=== PATIENT | male | born 1975 | race American Indian/Alaskan Native ===

== ENCOUNTER 2018-09-22 11:33 | Emergency (ER) | payer SELFPAY ==
[2018-09-22 11:44] VITALS: BP 167/105
--- NOTE | 2018-09-22 11:53 | Emergency Department Report ---
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 Pt states he wants a refill on his metformin and lisinopril which he takes daily. Pt states he has no other complaints, he denies f/c/n/v/abd pain,chest pain, headache, or blurry vision - ROS Review of Systems: As noted in HPI - Exam Physical Exam: GEN:AAO x3 , speaking in clear sentences SKiN: no rash, warm NEURO: NO neuro deficit MSE screening note: Focused history and physical exam performed. Due to findings the following was ordered: ED Medical Decision Making - Medical Decision Making 43 tyo male presents for med refill he is in no distress Discuss f/u with his pcp upon returning home meds refilled x 60 days states his f/u is in November in [place] VSS pt will be d/c at his time ED Disposition for MSE Clinical Impression: Medication refill Disposition: TO HOME OR SELFCARE Is pt being admited?: No Does the pt Need Aspirin: No Condition: Stable Instructions: Hypertension (ED), Diabetes Mellitus Type 2 in Adults (ED) Additional Instructions: f/u with your pcp as discussed take your medication as prescribed Prescriptions: Metformin HCl [metFORMIN] 1,000 mg PO BID 60 Days #120 tab Lisinopril [Zestril TAB] 20 mg PO QDAY #60 tablet Forms: Work/School Release Form(ED) Time of Disposition: 12:01
== END 2018-09-22 12:08 | disposition home or self-care (01) ==
LOC: ED 11:33
DX: I10 Essential (primary) hypertension (principal); E11.9 Type 2 diabetes mellitus without complications; Z76.0 Encounter for issue of repeat prescription
CPT/HCPCS: 99282

== ENCOUNTER 2020-04-10 17:47 | Emergency (ER) | payer SELFPAY ==
[2020-04-10 20:20] LABS: Basophils # (Auto) 0.1 K/mm3 (0.0-0.1); Eosinophils # (Auto) 0.4 K/mm3 (0.0-0.4); Eosinophils % (Auto) 4.9 % (0.0-4.3); Hematocrit 39.9 % (35.5-45.6); Hemoglobin 13.4 gm/dl (11.8-15.2); Lymphocytes # (Auto) 2.5 K/mm3 (1.2-5.4); Lymphocytes % (Auto) 27.9 % (13.4-35.0); Mean Corpuscular HGB Conc 34 % (32-34); Mean Corpuscular Volume 88 fl (84-94); Monocytes # (Auto) 0.5 K/mm3 (0.0-0.8); Monocytes % (Auto) 5.7 % (0.0-7.3); Platelet Count 261 K/mm3 (140-440); Red Blood Count 4.52 M/mm3 (3.65-5.03); Red Cell Distribution Width 14.2 % (13.2-15.2)
--- NOTE | 2020-04-10 20:25 | Cat Scan Report ---
CT head/brain wo con INDICATION: neuro deficits <6hrs or sx present upon awakening. TECHNIQUE: Routine CT head without contrast. All CT scans at this location are performed using CT dos e reduction for ALARA by means of automated exposure control. COMPARISON: None. FINDINGS: BRAIN / INTRACRANIAL CONTENTS: No acute hemorrhage, mass effect, midline shift, or hydrocephalus. No appreciable acute large territorial or lacunar infarct. No chronic infarct or focal atrophy. Normal b rain volume and ventricular/sulcal size for age. ORBITS: No significant abnormality of visualized orbits. SINUSES / MASTOIDS: No significant abnormality of visualized sinuses and mastoid air cells. ADDITIONAL FINDINGS: None. IMPRESSION: 1. No acute intracranial abnormality. Signer Name: Nicho Jefferson MD Signed: 04/10/2020 8:21 PM Workstation Name: [id number]
[2020-04-10 20:36] LABS: INR 0.93 (0.87-1.13)
[2020-04-10 20:37] LABS: Partial Thromboplastin Time 26.9 Sec. (24.2-36.6)
[2020-04-10 20:38] LABS: BUN/Creatinine Ratio 14; Blood Urea Nitrogen 15 mg/dL (9-20); Calcium 9.3 mg/dL (8.4-10.2); Hemolysis Index 141
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
[2020-04-11] MEDS ORDERED: methylPREDNISolone Sod Succinate 125 MG/2 ML INJ IV ONE (12:57)
[2020-04-11] MEDS ORDERED: cloNIDine 0.2 MG TAB PO ONE (12:57)
[2020-04-11 15:33] VITALS: BP 174/81
== END 2020-04-11 18:45 | disposition other institution (70) ==
LOC: ED 17:47
DX: I10 Essential (primary) hypertension (principal); R53.1 Weakness; E11.9 Type 2 diabetes mellitus without complications; F17.200 Nicotine dependence, unspecified, uncomplicated; Z79.899 Other long term (current) drug therapy; Z98.890 Other specified postprocedural states
CPT/HCPCS: 36415; 70450; 80048; 82962; 84484; 85025; 85610; 85670; 85730; 96374; 99285; J2930; 93005